=== PATIENT | male | born 1960 | race Caucasian/White ===

== ENCOUNTER 2018-04-05 11:19 | Observation (INO) ==
[2018-04-05] MEDS ORDERED: Sod Chloride 0.9% Inj 1,000 ML IV.CONT SCH (11:45)
--- NOTE | 2018-04-05 11:55 | ED ---
HPI General Chief Complaint: Chest Pain Stated Complaint: Lt side chest pain Source: patient Mode of arrival: ambulatory Limitations: no limitations History of Present Illness HPI narrative: The patient is a 57-year-old male who presents to the emergency department for substernal chest pain which started several days ago. The chest pain started after he was eating, is located substernal, associated with burping, dysphagia, and subsequent nausea/vomiting. The patient has a history of similar symptoms in the past and has had a previous endoscopy performed by his planning supervisor in [place], [place]. The patient states the pain is worse with eating, states he has significant pain after drinking chocolate milk this morning. He does have a history of reflux and was placed on Zantac and Prilosec for the symptoms in the past. He does note the symptoms are intermittent, however, when they are present he is unable to swallow or eat secondary to the pain. He denies any history of esophagitis. The patient does have a history of atrial fibrillation with previous cardiac ablation but denies any known history of coronary artery disease, hypertension, hyperlipidemia, diabetes, or tobacco use. Symptoms are moderate. Symptoms are worse with eating. There are no current alleviating factors. MD complaint: chest pain STEMI Alert: No Onset (ago): day(s) Duration: intermittent and progressively worsening Onset: after eating Pain location: substernal Severity: severe Severity scale (1-10): 8 Quality: aching and dull Pain radiation: abdomen Relieving factors: nothing Exacerbating factors: eating Context: other Associated symptoms: vomiting Treatments prior to arrival chest pain: none Related Data Home Medications Medication Instructions Recorded Confirmed ranitidine HCl [Zantac] 150 mg PO DAILY 04/05/18 04/05/18 zolpidem [Ambien] 04/05/18 Allergies Allergy/AdvReac Type Severity Reaction Status Date / Time No Known Allergies Allergy Unverified 04/05/18 11:37 Review of Systems ROS: all other systems reviewed are negative [facility] Medical History Medical History Hx of gastroesophageal reflux (GERD) (Acute) Surgical History Surgical History History of cardiac radiofrequency ablation (Acute) Social History Social History Substance History: No History of Abuse Second Hand Smoke Exposure: No Smoking Status: Never smoker How Often Do You Have a Drink Containing Alcohol: 2 to 4 times a month Immunization History Tetanus Immunization: Unsure Hx Influenza Vaccine This Season: No Exam Narrative Exam Narrative: GENERAL: Awake, alert, pleasant 57-year-old male who appears his stated age and is in no acute respiratory distress. SKIN: Focused skin assessment warm/dry. HEAD: Atraumatic. Normocephalic. EYES: Pupils equal and round. No scleral icterus. No injection or drainage. ENT: No nasal bleeding or discharge. Mucous membranes pink and moist. NECK: Trachea midline. No JVD. CARDIOVASCULAR: Regular rate and rhythm. No murmur appreciated. RESPIRATORY: No accessory muscle use. Clear to auscultation. Breath sounds equal bilaterally. GASTROINTESTINAL: Abdomen soft, non-tender, nondistended. No rebound tenderness , guarding, or rigidity. MUSCULOSKELETAL: No obvious deformities. No clubbing. No cyanosis. No edema. NEUROLOGICAL: Awake and alert. No obvious cranial nerve deficits. Motor grossly within normal limits. Normal speech. PSYCHIATRIC: Appropriate mood and affect; insight and judgment normal. Medical Decision Making MDM Narrative Medical decision making narrative: IV was established, labs were drawn and sent , and the patient was placed on cardiac telemetry monitoring and continuous pulse oximetry monitoring. EKG was ordered and interpreted. I had a discussion with radiology, Dr. Tucker, regarding possible Gastrografin swallow study. He recommends direct visualization or outpatient follow-up. Therefore, discussed the patient with the planning supervisor, Dr. Moss, who request CT [facility], n.p.o., possible endoscopy this evening or in the morning. The patient does have significant pain with swallowing, is unable to tolerate oral intake currently secondary to significant pain, therefore, patient will be 23 hour observation. Patient's EKG and troponin were unremarkable. CT of the thorax does reveal mild distal esophageal wall thickening, possibly consistent with esophagitis. The patient will be 23 hour observation for endoscopy. [facility] were paged for 23 hour observation. I discussed the patient with Dr. Calvo who agrees with 23 hour observation. Medical Screen Exam Complete: Yes Emergency Medical Condition: Yes Differential Diagnosis Differential Diagnosis: Differential diagnosis includes achalasia, esophageal stricture, esophageal motility disorder, esophageal spasm, food bolus obstruction, esophagitis, GERD, Saha's esophagus, atypical ACS. Lab Data Lab results reviewed: Yes I reviewed the patient's lab results. Lab results narrative: Laboratory evaluation was unremarkable Result diagrams: 04/05/18 11:55 04/05/18 11:55 Lab Results 04/05/18 04/05/18 04/05/18 Range/Units 11:55 11:55 11:55 CBC w Diff Auto diff final WBC 9.9 (4.0-11.0) th/mm3 RBC 4.87 (4.50-5.90) mil/mm3 Hgb 15.2 (13.0-17.0) gm/dL Hct 44.5 (39.0-51.0) % MCV 91.4 (80.0-100.0) fL MCH 31.2 (27.0-34.0) pg MCHC 34.1 (32.0-36.0) % RDW 12.9 (11.6-17.2) % Plt Count 247 (150-450) th/mm3 MPV 7.3 (7.0-11.0) fL Neut % (Auto) 76.6 H (16.0-70.0) % Lymph % (Auto) 11.1 (9.0-44.0) % [place] % (Auto) 10.4 H (0.0-8.0) % Eos % (Auto) 0.3 (0.0-4.0) % Baso % (Auto) 1.6 (0.0-2.0) % Neut # (Auto) 7.6 (1.8-7.7) th/mm3 Lymph # (Auto) 1.1 (1.0-4.8) th/mm3 [place] # (Auto) 1.0 H (0.0-0.9) th/mm3 Eos # (Auto) 0.0 (0.0-0.4) th/mm3 Baso # (Auto) 0.2 (0.0-0.2) th/mm3 WBC Differential . Differential Comment . PT 10.4 (9.8-11.6) sec INR 1.0 Ratio APTT 24.5 (24.3-30.1) sec Sodium 137 (136-145) meq/L Potassium 3.6 (3.5-5.1) meq/L Chloride 101 (98-107) meq/L Carbon Dioxide 29.0 (21.0-32.0) meq/L Anion Gap 7 (5-15) meq/L BUN 16 (7-18) mg/dL Creatinine 1.10 (0.60-1.30) mg/dL Estimated GFR 69 L (>89) mL/min Random Glucose 106 (74-106) mg/dL Calcium 8.4 L (8.5-10.1) mg/dL Total Bilirubin 0.9 (0.2-1.0) mg/dL AST 15 (15-37) U/L ALT 24 (12-78) U/L Alkaline Phosphatase 46 (45-117) U/L Total Creatine Kinase 76 (39-308) U/L Troponin I Less than 0.02 L (0.02-0.05) ng/mL Total Protein 7.0 (6.4-8.2) g/dL Albumin 3.3 L (3.4-5.0) g/dL Lipase 88 (73-393) U/L Imaging Data Radiologist's impression: Chest X-Ray 04/05/18 11:45 CONCLUSION: 1. No acute cardiopulmonary disease. Chest CT 04/05/18 12:20 CONCLUSION: 1. Small simple density right-sided pleural effusion with associated minimal groundglass opacities at the right lung base likely reflecting compressive atelectasis. 2. Circumferential mild distal esophageal wall thickening which may reflect esophagitis. Consider correlation with upper endoscopy in the appropriate clinical setting. 3. Diffusely decreased hepatic density consistent with hepatic steatosis versus medical liver disease. ECG Data EKG Prior to Arrival: No Attestation: I personally reviewed and interpreted this ECG as follows: Interpretation: EKG reveals normal sinus rhythm with a rate 80 no ischemic ages or ectopy noted. Discharge Plan Discharge Disposition Patient Disposition: 30 Still Patient Discharge Condition Condition: Stable Discharge Details Diagnosis: Odynophagia, Dysphagia Physicians Team ED Provider: Ezequiel Suazo Primary Care Provider: Tammie Bob Other Providers: Pauline Moss Rxs /Orders / Referrals /Forms Prescriptions: No Action ranitidine HCl [Zantac] 150 mg Tablet 150 mg PO DAILY RF: 0 zolpidem [Ambien] 5 mg Tablet RF: 0 Discharge Instructions Patient Printed Instructions: Chest Pain (ED) Status ED Status: Pending Admission
[2018-04-05 12:12] LABS: Baso # (Auto) 0.2 th/mm3 (0.0-0.2); Baso % (Auto) 1.6 % (0.0-2.0); Eos % (Auto) 0.3 % (0.0-4.0); Hematocrit 44.5 % (39.0-51.0); Hemoglobin 15.2 gm/dL (13.0-17.0); Lymph # (Auto) 1.1 th/mm3 (1.0-4.8); Lymph % (Auto) 11.1 % (9.0-44.0); Mean Corpuscular HGB Conc 34.1 % (32.0-36.0); Mean Corpuscular Hemoglobin 31.2 pg (27.0-34.0); Mean Corpuscular Volume 91.4 fL (80.0-100.0); Mean Platelet Volume 7.3 fL (7.0-11.0); Mono % (Auto) 10.4 % (0.0-8.0); Neut # (Auto) 7.6 th/mm3 (1.8-7.7); Neut % (Auto) 76.6 % (16.0-70.0); Platelet Count 247 th/mm3 (150-450); Red Blood Count 4.87 mil/mm3 (4.50-5.90); Red Cell Distribution Width 12.9 % (11.6-17.2); White Blood Count 9.9 th/mm3 (4.0-11.0)
[2018-04-05 12:14] LABS: Chloride 101 meq/L (98-107); Potassium 3.6 meq/L (3.5-5.1); Sodium 137 meq/L (136-145)
[2018-04-05 12:18] LABS: Activated Partial Thrombo Time 24.5 sec (24.3-30.1); Albumin 3.3 g/dL (3.4-5.0); Anion Gap 7 meq/L (5-15); Calcium 8.4 mg/dL (8.5-10.1); Glucose,Random 106 mg/dL (74-106); Lipase 88 U/L (73-393); Prothrombin Time 10.4 sec (9.8-11.6)
[2018-04-05 12:19] LABS: Blood Urea Nitrogen 16 mg/dL (7-18)
[2018-04-05 12:21] LABS: Alanine Aminotransferase 24 U/L (12-78); Aspartate Aminotransferase 15 U/L (15-37); Glomerular Filtration Rate 69 mL/min (>89)
[2018-04-05 12:24] LABS: Alkaline Phosphatase 46 U/L (45-117)
[2018-04-05 12:38] LABS: Creatine Kinase 76 U/L (39-308)
--- NOTE | 2018-04-05 13:04 | XR ---
EXAM DATE: 04/05/2018 1:02 PM EDT AGE/SEX: 57 years / Male INDICATIONS: Chest pain, worse when patient eats or drinks something. CLINICAL DATA: This is the patient's initial encounter. Patient reports that signs and symptoms have been present for 2 days and indicates a pain score of 0/10. MEDICAL/SURGICAL HISTORY: Gastroesophageal reflux disease. . cardiac ablation, loop recorder, a fib COMPARISON: No prior exams available for comparison. FINDINGS: A single AP view of the chest demonstrates the lungs to be symmetrically aerated without evidence of mass, infiltrate or effusion. The cardiomediastinal contours are unremarkable. Osseous structures a re intact. CONCLUSION: 1. No acute cardiopulmonary disease. Electronically signed by: Alexis Arreaga MD 04/05/2018 1:03 PM EDT
--- NOTE | 2018-04-05 13:29 | CT ---
EXAM DATE: 04/05/2018 1:18 PM EDT AGE/SEX: 57 years / Male INDICATIONS: Dysphagia and sub sternal chest pain after eating. CLINICAL DATA: This is the patient's initial encounter. Patient reports that signs and symptoms have been present for 1 week and indicates a pain score of 7/10. MEDICAL/SURGICAL HISTORY: Gastroesophageal reflux disease. . Cardiac ablation. RADIATION DOSE: 11.14 CTDI (mGy) COMPARISON: [facility], CHEST 1V SINGLE AP, 04/05/2018. . TECHNIQUE: Multiple contiguous axial images were obtained through the chest during bolus infusion of 65 ml Omnipaque 350 (iohexol) nonionic water-soluble contrast as a single exam dose. Images were obtained in suspended respiration using multiple row detector helical technique. Using automated exp osure control and adjustment of the mA and/or kV according to patient size, radiation dose was kept a s low as reasonably achievable to obtain optimal diagnostic quality images. DICOM format image data is available electronically for review and comparison. FINDINGS: Lung: Minimal groundglass opacities in the right lung base. Subtle groundglass opacity in the extreme left lung base. Pleura: Small simple density right-sided pleural effusion. Mediastinum: Heart is unremarkable without pericardial effusion. Subcentimeter mediastinal nodes do not meet CT size criteria. Osseous Structures: No abnormal focal lytic or blastic bony lesions. Soft Tissues: Cardiac monitoring the left chest wall. Other: Visualized upper abdomen demonstrates mild diffusely decreased hepatic attenuation. There is circumferential distal esophageal wall thickening. No surrounding inflammatory change. CONCLUSION: 1. Small simple density right-sided pleural effusion with associated minimal groundglass opacities a t the right lung base likely reflecting compressive atelectasis. 2. Circumferential mild distal esophageal wall thickening which may reflect esophagitis. Consider co rrelation with upper endoscopy in the appropriate clinical setting. 3. Diffusely decreased hepatic density consistent with hepatic steatosis versus medical liver diseas e. Electronically signed by: Alexis Arreaga MD 04/05/2018 1:27 PM EDT
[2018-04-05] MEDS ORDERED: Aluminum/Magnesium/Simethacone Susp 30 ML UDC PO PRN (13:52)
[2018-04-05] MEDS ORDERED: Bisacodyl 10 MG Supp RECTAL PRN (13:53)
[2018-04-05] MEDS ORDERED: Zolpidem Tartrate 5 MG Tablet PO PRN (13:53)
[2018-04-05] MEDS ORDERED: Acetaminophen 325 MG Tablet PO PRN (13:53)
[2018-04-05] MEDS ORDERED: Pantoprazole Inj 40 MG Vial IV.PUSH SCH (14:00)
[2018-04-05] MEDS ORDERED: Potassium Chloride Inj 20 MEQ in Sod Chloride 0.9% Inj 1,000 ML IV.CONT SCH (14:00)
--- NOTE | 2018-04-05 15:13 | P.HP ---
History of Present Illness Primary Care Physician: Tammie Bob Chief Complaint: Epigastric pain and difficulty swallowing History of Present Illness: This is a 57-year-old male patient with a known medical history of GERD and dysphagia who presented to the ED with complaints of midepigastric pain and difficulty swallowing. Patient states that last week on Thursday he was having some diarrhea and abdominal pain that was self-limiting and improved with Pepto Bismol and supportive care. He states at that time he did have some black stool that eventually cleared up a couple days later. He went on a trip to [place] and while there on Thursday afternoon he was nauseous and vomited the entire day. Denies any coffee ground or bloody emesis. He states that since that time on Thursday he has been unable to tolerate anything by mouth due to inability to swallow and mid-epigastric burning. Patient states that anything he drinks of eats causes worsening symptoms and a burning sensation down his esophagus and stomach. The pain is a 10/10 at its worst. He has attempted to take Zantac and Prilosec without any resolution of his symptoms. He admits to subjective fevers and chills. Denies any shortness of breath or chest pain. Last BM was on Thursday which was black in color but he relates this to Pepto Bismol use. Denies any recent NSAID use of any kind. Patient does follow with a GI specialist in [place], Dr. Wynne, last seen roughly a year ago. Last EGD was a year ago which was reportedly negative. He also underwent a barium swallow roughly 4 months ago which was unremarkable per patient. It should be noted that patient had a history of atrial fibrillation and underwent an ablation in 2014, which has been effective since that time. - Diagnosis (1) Dysphagia (2) Odynophagia (3) Hx of gastroesophageal reflux (GERD) Review of Systems All other systems reviewed negative except as stated in [facility] - History History Provided By: Patient - Medical History Medical History: Medical History (Last Reviewed 04/05/18 @ 15:13 by Taylor Bartholomew) Hx of gastroesophageal reflux (GERD) (Acute) - Surgical History Surgical History: Surgical History (Last Reviewed 04/05/18 @ 15:13 by Taylor Bartholomew) History of cardiac radiofrequency ablation (Acute) - Family History Family History: Family History (Last Reviewed 04/05/18 @ 15:48 by Taylor Bartholomew) Mother Diabetes - Tobacco History Second Hand Smoke Exposure: No Smoking Status: Never smoker - Alcohol History How Often Do You Have a Drink Containing Alcohol: 2 to 4 times a month - Substance Use History Substance History: No History of Abuse - Immunization History Tetanus Immunization: Unsure Hx Influenza Vaccine This Season: No Medications and Allergies Active Medications: Active Medications Acetaminophen (Tylenol) 650 mg PO Q4H PRN PRN Reason: Temp > 100.4 Al Hydrox/Mg Hydrox/Simethicone (Mag-Al Plus Susp Liq) 30 ml PO Q6H PRN PRN Reason: DYSPEPSIA OR HEARTBURN Al Hydroxide/Mg Hydroxide (Milk Of Magnesia Liq) 30 ml PO Q12H PRN PRN Reason: Mild Constipation Bisacodyl (Dulcolax Supp) 10 mg RECTAL DAILY PRN PRN Reason: SEVERE CONSITIPATION Calcium Carbonate (Tums Chew) 500 mg CHEW Q6H PRN PRN Reason: DYSPEPSIA OR HEARTBURN Sodium Chloride (Ns Inj) 1,000 mls @ 125 mls/hr IV.CONT .Q8H [facility] Stop: 04/05/18 19:44 Last Admin: 04/05/18 12:03 Dose: 125 mls/hr Potassium Chloride/Sodium Chloride (Ns + Kcl 20 Meq Inj) 1,000 mls @ 100 mls/ hr IV.CONT .Q10H [facility] Last Admin: 04/05/18 14:56 Dose: 100 mls/hr Lactulose (Lactulose Liq) 30 ml PO DAILY PRN PRN Reason: SEVERE CONSITIPATION Ondansetron HCl (Zofran Inj) 4 mg IV.PUSH Q6H PRN PRN Reason: NAUSEA OR VOMITING Pantoprazole Sodium (Protonix Inj) 40 mg IV.PUSH Q24H [facility] Last Admin: 04/05/18 14:59 Dose: 40 mg Senna/Docusate Sodium (Kary-Colace) 1 tab PO BID [facility] Sennosides (Senokot) 17.2 mg PO Q12H PRN PRN Reason: Moderate Constipation Sodium Chloride (Ns Flush) 2 ml IV.FLUSH PRN PRN PRN Reason: FLUSH AFTER USING IV ACCESS Last Admin: 04/05/18 14:58 Dose: 2 ml Zolpidem Tartrate (Ambien) 5 mg PO HS PRN PRN Reason: INSOMNIA Allergies Allergy/AdvReac Type Severity Reaction Status Date / Time No Known Allergies Allergy Unverified 04/05/18 11:37 Home Medications Medication Instructions Recorded Confirmed Type ranitidine HCl [Zantac] 150 mg PO DAILY 04/05/18 04/05/18 History zolpidem [Ambien] 04/05/18 History Exam Vital signs: Vital Signs 04/05/18 13:53 04/05/18 14:38 Pulse Rate 84 78 Respiratory Rate 16 16 Blood Pressure 110/71 112/72 Pulse Oximetry 96 98 Narrative: GENERAL: Well-developed, well-nourished patient in [employer]. SKIN: Warm and dry. No rash. HEAD: Normocephalic. Atraumatic. EYES: Pupils equal and round. No scleral icterus. No injection or drainage. ENT: No nasal bleeding or discharge. Mucous membranes pink and moist. NECK: Supple. Trachea midline. CARDIOVASCULAR: Regular rate and rhythm. S1, S2 noted. No murmur appreciated. RESPIRATORY: No accessory muscle use. Clear to auscultation. Breath sounds equal bilaterally. GASTROINTESTINAL: Abdomen soft, nondistended. Normoactive bowel sounds x4. Pain to palpation in midepigastric area. MUSCULOSKELETAL: No obvious deformities. Extremities without clubbing, cyanosis , or edema. NEUROLOGICAL: Awake and alert. No obvious cranial nerve deficits. Motor grossly within normal limits. 5/5 muscle strength in bilateral upper and lower extremities. Normal speech. PSYCHIATRIC: Appropriate mood and affect; insight and judgment normal. Results - Labs CBC & Chem 7: 04/05/18 11:55 04/05/18 11:55 Labs: Laboratory Results - last 24 hr 04/05/18 04/05/18 04/05/18 11:55 11:55 11:55 CBC w Diff Auto diff final WBC 9.9 RBC 4.87 Hgb 15.2 Hct 44.5 MCV 91.4 MCH 31.2 MCHC 34.1 RDW 12.9 Plt Count 247 MPV 7.3 Neut % (Auto) 76.6 H Lymph % (Auto) 11.1 [place] % (Auto) 10.4 H Eos % (Auto) 0.3 Baso % (Auto) 1.6 Neut # (Auto) 7.6 Lymph # (Auto) 1.1 [place] # (Auto) 1.0 H Eos # (Auto) 0.0 Baso # (Auto) 0.2 WBC Differential . Differential Comment . PT 10.4 INR 1.0 APTT 24.5 Sodium 137 Potassium 3.6 Chloride 101 Carbon Dioxide 29.0 Anion Gap 7 BUN 16 Creatinine 1.10 Estimated GFR 69 L Random Glucose 106 Calcium 8.4 L Total Bilirubin 0.9 AST 15 ALT 24 Alkaline Phosphatase 46 Total Creatine Kinase 76 Troponin I Less than 0.02 L Total Protein 7.0 Albumin 3.3 L Lipase 88 - Imaging Impressions Chest X-Ray 04/05/18 11:45 CONCLUSION: 1. No acute cardiopulmonary disease. Chest CT 04/05/18 12:20 CONCLUSION: 1. Small simple density right-sided pleural effusion with associated minimal groundglass opacities at the right lung base likely reflecting compressive atelectasis. 2. Circumferential mild distal esophageal wall thickening which may reflect esophagitis. Consider correlation with upper endoscopy in the appropriate clinical setting. 3. Diffusely decreased hepatic density consistent with hepatic steatosis versus medical liver disease. Caprini VTE Risk Assessment Caprini VTE Risk Assessment: No/Low Risk (score <= 1) Caprini Risk Assessment Model: Point Value = 1 Point Value = 2 Point Value = 3 Point Value = 5 Age 41-60 Minor surgery BMI > 25 kg/m2 Swollen legs Varicose veins or History of unexplained or recurrent spontaneous Oral contraceptives or hormone replacement Sepsis (< 1 month) Serious lung disease, including pneumonia (< 1 month) Abnormal pulmonary function Acute myocardial infarction Congestive heart failure (< 1 month) History of inflammatory bowel disease Medical patient at bed rest Age 61-74 Arthroscopic surgery Major open surgery (> 45 min) Laparoscopic surgery (> 45 min) Malignancy Confined to bed (> 72 hours) Immobilizing plaster cast Central venous access Age >= 75 History of VTE Family history of VTE Factor V Leiden Prothrombin [id number] Lupus anticoagulant Anticardiolipin antibodies Elevated serum homocysteine Heparin-induced thrombocytopenia Other congenital or acquired thrombophilia Stroke (< 1 month) Elective arthroplasty Hip, pelvis, or leg fracture Acute spinal cord injury (< 1 month) Prophylaxis Regimen: Total Risk Factor Score Risk Level Prophylaxis Regimen 0-1 Low Early ambulation 2 Moderate Order ONE of the following: *Sequential Compression Device (SCD) *Heparin 5000 units SQ BID 3-4 Higher Order ONE of the following medications: *Heparin 5000 units SQ TID *Enoxaparin/Lovenox 40 mg SQ daily (WT < 150 kg, CrCl > 30 mL/min) *Enoxaparin/Lovenox 30 mg SQ daily (WT < 150 kg, CrCl > 10-29 mL/min) *Enoxaparin/Lovenox 30 mg SQ BID (WT < 150 kg, CrCl > 30 mL/min) AND/OR *Sequential Compression Device (SCD) 5 or more Highest Order ONE of the following medications: *Heparin 5000 units SQ TID (Preferred with Epidurals) *Enoxaparin/Lovenox 40 mg SQ daily (WT < 150 kg, CrCl > 30 mL/min) *Enoxaparin/Lovenox 30 mg SQ daily (WT < 150 kg, CrCl > 10-29 mL/min) *Enoxaparin/Lovenox 30 mg SQ BID (WT < 150 kg, CrCl > 30 mL/min) AND *Sequential Compression Device (SCD) Assessment and Plan - Assessment (1) Dysphagia Code(s): R13.10 - Dysphagia, unspecified Status: Acute (2) Odynophagia Code(s): R13.10 - Dysphagia, unspecified Status: Acute (3) Hx of gastroesophageal reflux (GERD) Code(s): Z87.19 - Personal history of other diseases of the digestive system Status: Acute - Plan This is a 57-year-old male patient with: Dysphagia Odynophagia History of GERD -Patient presents with difficulty swallowing and mid epigastric pain, worse with food. -CT thorax done and reviewed showing mild distal wall thickening possible consistent with esophagitis. -CBC and BMP essentially unremarkable. -Will check occult blood in stool for complaints of recent black stools. Assess for any active bleeding. -Gastroenterology consulted, input and recommendations pending. -Add Protonix IV. -For now will keep NPO. Ensure hydration, continue IVF. Assess for aspiration. ST consulted and awaiting evaluation. -Likely will undergo an EGD in am. -Antiemetics as needed. Pain control with IV narcotics as needed. DVT prophylaxis: SCDs. Hold chemical prophylaxis for possible need for GI procedure or active bleeding. (1) Dysphagia Qualifiers: Dysphagia type: unspecified Qualified Code(s): R13.10 - Dysphagia, unspecified
[2018-04-05] MEDS: Morphine Sulfate Inj 2 MG/ML Vial IV.PUSH PRN (16:49)
[2018-04-05] MEDS: Sucralfate Liq 1 GM/10 ML UDC PO SCH (21:08)
[2018-04-05] MEDS: Senna/Docusate Sodium 8.6/50 MG Tablet PO SCH (21:09)
--- NOTE | 2018-04-05 21:53 | MB ---
cc: Pauline Moss MD DATE: 04/05/2018 REFERRING PHYSICIAN: Solomon Calvo MD REASON FOR CONSULTATION: Odynophagia and dysphagia. HISTORY OF PRESENT ILLNESS: Mr. Mccarthy is a 57-year-old gentleman with history of reflux and dysphagia. He came in to the emergency room with complaints of midepigastric pain and difficulty swallowing for approximately 1 week. The patient also reports having severe odynophagia. He stated he has had these kind of issues going on for a couple of years but never had this kind of severity in the past. He had an endoscopy done 5 months ago in [place] by Dr. Wynne, and according to him, he was told he has possible esophagitis, but no other abnormalities were noted. The patient was given PPI with some improvement in his symptoms. He does report drinking alcohol. He denies any drug use. He denies any use of any antibiotic, potassium pills, or any other big pills that could have caused like pill-induced esophagitis. There is no weight loss. No melena, hematemesis, or hematochezia. He did have a trip to [place] recently, and he returned Thursday afternoon, had nausea and vomiting which lasted the entire day. He was able to keep some clear liquids down, but it was terribly painful. PAST MEDICAL HISTORY: Reflux, odynophagia, dysphagia, acid reflux. PAST SURGICAL HISTORY: Endoscopy. He also had cardiac radiofrequency ablation in the past. FAMILY HISTORY: Diabetes. SOCIAL HISTORY: He denies smoking. He drinks alcohol 3-4 times a month. He denies any drug use. MEDICATIONS: 1. Simethicone. 2. Milk of magnesia. 3. Dulcolax. 4. Lactulose p.r.n. 5. Zofran. 6. Protonix. At home, he is taking Zantac, Ambien. ALLERGIES: NO KNOWN ALLERGIES. REVIEW OF SYSTEMS: CONSTITUTIONAL: He denies any fever, chills, weight loss, or weight gain. ENT: No alteration of baseline hearing or visual acuity. PULMONARY: Denies any chest pain, shortness of breath. GASTROINTESTINAL: As above. GENITOURINARY: Denies dysuria or hematuria. HEMATOLOGIC: No history of anemia or bleeding disorder. SKIN: No alteration of baseline skin lesion. NEUROLOGIC: No history of TIA or CVA kind of symptoms. PHYSICAL EXAMINATION: GENERAL: He is sitting comfortably in bed, in no acute distress. VITAL SIGNS: Temperature 97.8, heart rate is 93, blood pressure 119/71, saturation 96. HEENT: PERRLA. NECK: No JVD. No lymphadenopathy. CHEST: Clear to auscultation on palpation. CARDIOVASCULAR: S1, S2. No murmur. ABDOMEN: Soft, nontender. Bowel sounds are present. CENTRAL NERVOUS SYSTEM: Awake, alert, oriented x3. No focal signs identified. LABORATORY DATA: His CBC was normal. His CMP also essentially normal. PT/INR was normal. The patient had a CT chest, which showed small, simple density, right-sided pleural effusion with associated minimal ground glass opacities in the right lower lung base, likely reflecting atelectasis. He has circumferential mild distal esophageal wall thickening which may reflect esophagitis. Consider correlation with upper endoscopy. Hepatic steatosis. The patient had reportedly barium swallow few months ago, which according to him was normal. One was ordered here but was not done. A chest x-ray showed no acute cardiopulmonary disease. IMPRESSION: Odynophagia, possible secondary to severe reflux. Other etiologies will include infectious esophagitis, eosinophilic esophagitis, pill-induced esophagitis, possible stricture, less likely malignancy. Reportedly, the patient had an endoscopy which was essentially negative A few months ago. RECOMMENDATIONS: Clear liquid diet and n.p.o. after midnight. Esophagogastroduodenoscopy with dilatation in the morning. Start lidocaine and Carafate liquid. Continue Protonix. May need better control of acid reflux. Avoid alcohol and NSAIDS. Further recommendation will depend on the patient's clinical status and the above results. I would like to thank Dr. Calvo for referring him to our office for consultation. MD ZENAIDA Crouch/rocío , 06:34 PM , 06:49 PM
[2018-04-06 06:04] LABS: Baso % (Auto) 0.6 % (0.0-2.0); Eos % (Auto) 0.5 % (0.0-4.0); Hematocrit 43.1 % (39.0-51.0); Hemoglobin 14.7 gm/dL (13.0-17.0); Lymph # (Auto) 1.3 th/mm3 (1.0-4.8); Mean Corpuscular HGB Conc 34.1 % (32.0-36.0); Mean Corpuscular Hemoglobin 31.5 pg (27.0-34.0); Mean Corpuscular Volume 92.5 fL (80.0-100.0); Mean Platelet Volume 7.3 fL (7.0-11.0); Mono # (Auto) 0.9 th/mm3 (0.0-0.9); Mono % (Auto) 12.4 % (0.0-8.0); Neut # (Auto) 4.8 th/mm3 (1.8-7.7); Neut % (Auto) 68.5 % (16.0-70.0); Platelet Count 222 th/mm3 (150-450); Red Blood Count 4.65 mil/mm3 (4.50-5.90); Red Cell Distribution Width 12.7 % (11.6-17.2)
[2018-04-06 06:13] LABS: Potassium 3.9 meq/L (3.5-5.1)
[2018-04-06 06:15] LABS: Calcium 7.7 mg/dL (8.5-10.1)
[2018-04-06 06:16] LABS: Carbon Dioxide 26.9 meq/L (21.0-32.0)
[2018-04-06] MEDS ORDERED: Lidocaine PF 1% Inj 5 ML Syringe INFILTRATN ONE (07:20)
--- NOTE | 2018-04-06 07:26 | GIPROC ---
[facility] [address] [place] [address], [id number] EGD PROCEDURE REPORT EXAM DATE: 04/06/2018 PATIENT NAME: Mich Mccarthy MR #: [id number] BIRTHDATE: 1960 ATTENDING: Pauline Moss MD ORDER #: [id number] LABORER HEADING: Kriss Murguia and Aleena Plasencia STATUS: inpatient INDICATIONS: The patient is a 57 yr old male here for an EGD due to odynophagia, dysphagia PROCEDURE PERFORMED: EGD w/ biopsy MEDICATIONS: None and Per Anesthesia. TOPICAL ANESTHETIC: none CONSENT: The patient understands the risks and benefits of the procedure and understands that these risks include, but are not limited to: sedation, allergic reaction, infection, perforation and/or bleeding. Alternative means of evaluation and treatment include, among others: physical exam, x-rays, and/or surgical intervention. The patient elects to proceed with this endoscopic procedure. medical equipment was checked for proper function. Hand hygiene and appropriate measures for infection prevention was taken. After the risks, benefits and alternatives of the procedure were thoroughly explained, Informed consent was verified, confirmed and timeout was successfully executed by the treatment team. The patient was anesthetized with topical anesthesia and the Pentax EG-[id number] endoscope was introduced through the mouth and advanced to the second portion of the duodenum. Retroflexed views revealed a hiatal hernia The gastroscope was then slowly withdrawn and removed. Gastritis antrum-biopsy duodenitis second portion-biopsy esophagitis severe distal esophagus -biopsy-. ADVERSE EVENTS: There were no complications. IMPRESSIONS: 1. Gastritis antrum-biopsy duodenitis second portion-biopsy esophagitis severe distal esophagus -biopsy- 2. Retroflexed views revealed a hiatal hernia RECOMMENDATIONS: 1. Await biopsy results. Biopsy results will not be ready for 7-10 days. If you don't hear from us in two weeks, call our office for biopsy results. 2. Anti-reflux regimen 3. Ppi-bid Carafate liquid lidocaine viscous full liquid diet, advance as tolerated to soft diet ok to tn home from [facility] in 2 weeks PATIENT CONDITION: stable DISPOSITION: Inpatient REPEAT EXAM: Return 6 weeks EGD Pauline Moss MD eSigned: Pauline Moss MD 04/06/2018 7:26 AM cc: PATIENT NAME: Mich Mccarthy Pooja MR#: [id number]
[2018-04-06] MEDS: Senna/Docusate Sodium 8.6/50 MG Tablet PO SCH (08:20)
[2018-04-06] MEDS: Sucralfate Liq 1 GM/10 ML UDC PO SCH (08:20)
[2018-04-06] MEDS: Morphine Sulfate Inj 2 MG/ML Vial IV.PUSH PRN (08:20)
[2018-04-06 08:37] VITALS: RESP 16
[2018-04-06 11:41] VITALS: BP 121/73; PULSE 91; TEMP 97.6
[2018-04-06 11:43] VITALS: O2SAT 99
--- NOTE | 2018-04-06 12:53 | P.DS ---
Date of admission: 04/05/18 14:00 Primary care physician: Tammie Bob Attending physician on discharge: Solomon Ana Maríakaden Anticipated date of discharge: 04/06/18 Brief History from admission: This is a 57-year-old male patient with a known medical history of GERD and dysphagia who presented to the ED with complaints of midepigastric pain and difficulty swallowing. Patient states that last week on Thursday he was having some diarrhea and abdominal pain that was self-limiting and improved with Pepto Bismol and supportive care. He states at that time he did have some black stool that eventually cleared up a couple days later. He went on a trip to [place] and while there on Thursday afternoon he was nauseous and vomited the entire day. Denies any coffee ground or bloody emesis. He states that since that time on Thursday he has been unable to tolerate anything by mouth due to inability to swallow and mid-epigastric burning. Patient states that anything he drinks of eats causes worsening symptoms and a burning sensation down his esophagus and stomach. The pain is a 10/10 at its worst. He has attempted to take Zantac and Prilosec without any resolution of his symptoms. He admits to subjective fevers and chills. Denies any shortness of breath or chest pain. Last BM was on Thursday which was black in color but he relates this to Pepto Bismol use. Denies any recent NSAID use of any kind. Patient does follow with a GI specialist in [place], Dr. Wynne, last seen roughly a year ago. Last EGD was a year ago which was reportedly negative. He also underwent a barium swallow roughly 4 months ago which was unremarkable per patient. It should be noted that patient had a history of atrial fibrillation and underwent an ablation in 2014, which has been effective since that time. DS: Diagnosis - Discharge Diagnosis (1) Esophagitis Status: Acute (2) Odynophagia Status: Acute (3) Dysphagia Status: Acute DS: Medications - Discharge Medications Prescriptions: omeprazole magnesium [Prilosec OTC] 20 mg PO BID #60 tab sucralfate 1 gm PO BID #1 bottle DS: Summary Hospital Course: 57-year-old male who originally presented to hospital because of the history of gastritis. Patient was admitted to the hospital with proton pump inhibitor, Carafate, viscous lidocaine. Patient was tolerating treatment well. GI consultation was requested. Patient did undergo EGD today and found to have severe esophagitis. It was recommended by GI physician that he continue PPI twice daily, Carafate. Patient will require outpatient follow-up for results of biopsies and continue treatment. Patient clinically stable this time. Diet has been advanced without any complications. Patient is very eager to go home. Plan discharge accordingly. - Time Spent with Patient Total time spent providing and/or coordinating discharge services: Greater than 30 minutes - Quality: VTE Deep Vein Thrombosis/Pulmonary Embolism Present on Admission: No Exam Vital signs: Vital Signs 04/05/18 13:53 04/05/18 14:38 04/05/18 16:00 Temperature 97.8 F Pulse Rate 84 78 93 H Respiratory Rate 16 16 20 Blood Pressure 110/71 112/72 119/71 Pulse Oximetry 96 98 96 04/05/18 16:51 04/05/18 20:00 04/06/18 00:00 Temperature 99.5 F 99.6 F Pulse Rate 75 75 Respiratory Rate 18 18 18 Blood Pressure 116/74 119/70 Pulse Oximetry 95 98 04/06/18 04:00 04/06/18 06:48 04/06/18 08:35 Temperature 98.0 F 98.0 F 98.2 F Pulse Rate 80 80 63 Respiratory Rate 18 18 16 Blood Pressure 111/66 111/66 131/83 Pulse Oximetry 96 96 100 04/06/18 11:40 Temperature 97.6 F Pulse Rate 91 H Respiratory Rate 16 Blood Pressure 121/73 Pulse Oximetry 99 Intake & Output 04/05/18 04/06/18 04/06/18 18:59 06:59 18:59 Intake Total 100 / 100 1000 / 1000 150 / 150 Balance 100 / 100 1000 / 1000 150 / 150 Weight 71.8 kg 71.8 kg Intake: IV 100 / 100 1000 / 1000 NS + KCl 20 mEq Inj 1,000 ML @ 1000 / 1000 100 mls/hr IV.CONT .Q10H SAMUEL Rx #:[id number] NS Inj 1,000 ML @ 125 mls/hr IV 100 / 100 .CONT .Q8H SAMUEL Rx#:[id number] Anesthesia Amount 150 / 150 Other: # Voids 2 Weight On Admission 71.8 kg Narrative: GENERAL: Well-developed, well-nourished, in no acute distress. alert and orientated HEENT: Head is normocephalic without any lesions or masses noted. Facial features are symmetric. Eyes: Extraocular muscles are intact. Conjunctivae were clear. NECK: Supple without any masses. Trachea midline no deviation. No JVD, CARDIAC: Regular rhythm, regular rate. S1/S2 are heard. No murmurs gallops or rubs. LUNGS: Clear to auscultation bilaterally. No wheeze, rhonchi or rales. No use of accessory muscles on inspiration or expiration. ABDOMEN: Soft, nontender. Nondistended. Bowel sounds heard in all 4 quadrants. No organomegaly or masses. Negative rebound, negative guarding EXTREMITIES: No edema, pulses are equal bilaterally. No cyanosis or clubbing NEUROLOGY: Mood and affect appear appropriate. Cranial nerves II through XII grossly intact. Moving all extremities, speech is clear Results Procedures completed during hospitalization: EGD IMPRESSIONS: 1. Gastritis antrum-biopsy duodenitis second portion-biopsy esophagitis severe distal esophagus -biopsy- 2. Retroflexed views revealed a hiatal hernia Pending studies at discharge: Pending at discharge 04/06/18 Surgical [PTH] Routine Labs on day of discharge: Labs from last 24 hours 04/06/18 04/06/18 04/05/18 05:16 05:16 16:48 CBC w Diff Auto diff final WBC 7.0 RBC 4.65 Hgb 14.7 Hct 43.1 MCV 92.5 MCH 31.5 MCHC 34.1 RDW 12.7 Plt Count 222 MPV 7.3 Neut % (Auto) 68.5 Lymph % (Auto) 18.0 [place] % (Auto) 12.4 H Eos % (Auto) 0.5 Baso % (Auto) 0.6 Neut # (Auto) 4.8 Lymph # (Auto) 1.3 [place] # (Auto) 0.9 Eos # (Auto) 0.0 Baso # (Auto) 0.0 WBC Differential . Differential Comment . Sodium 141 Potassium 3.9 Chloride 108 H Carbon Dioxide 26.9 Anion Gap 6 BUN 12 Creatinine 0.91 Estimated GFR 86 L POC Glucose 93 Random Glucose 96 Calcium 7.7 L - Impressions ITS Impressions Chest X-Ray 04/05/18 11:45 CONCLUSION: 1. No acute cardiopulmonary disease. Chest CT 04/05/18 12:20 CONCLUSION: 1. Small simple density right-sided pleural effusion with associated minimal groundglass opacities at the right lung base likely reflecting compressive atelectasis. 2. Circumferential mild distal esophageal wall thickening which may reflect esophagitis. Consider correlation with upper endoscopy in the appropriate clinical setting. 3. Diffusely decreased hepatic density consistent with hepatic steatosis versus medical liver disease. Discharge Plan - Discharge Disposition Patient Disposition: 01 Discharge Home - Discharge Condition Condition: Stable - Discharge Order Discharge Orders: Discharge Order (Routine); Ordered 04/06/18 Ordered By: Paco Kamara - Discharge Details Anticipated Discharge Date: 04/06/18 - Physicians Team Primary Care Provider: Tammie Bob Attending Provider: Solomon Calvo Other Providers: Pauline Moss MD
--- NOTE | 2018-04-06 17:34 | ECG ---
Date Performed: 04/05/2018 Time Performed: 11:24:37 PTAGE: 57 years EKG: Sinus rhythm NORMAL ECG NO PREVIOUS TRACING DOCTOR: Desean Trujillo Interpretating Date/Time 04/06/2018 17:32:36
== END 2018-04-06 12:54 | disposition home or self-care (01) ==
LOC: PHEFT 11:19 → PH3 11:19
PROVIDERS: ADMIT Internal Medicine; ATTEND Internal Medicine
PROC: PANENDO (2018-04-06 07:15)